=== PATIENT | male | born 2000 | race Caucasian/White ===

== ENCOUNTER 2023-12-27 12:26 | Day surgery (SDC) | payer BC, SELFPAY ==
[2023-12-27] VITALS (12 sets, daily range): BP systolic 121–143; BP diastolic 75–93; PULSE 67–95; RESP 12–19; TEMP 36.4–36.8; O2SAT 95–99; BMI 22.0
[2023-12-27] MEDS: LACTATED RINGERS 1000 ML 1,000 ML 100 ML IV ×2 (15:15→15:44)
--- NOTE | 2023-12-27 15:28 | PM.GSHP ---
History of Present Illness History of Present Illness Date Seen: 12/27/23 Chief complaint: Surgery Narrative: Arturo Coleman is a 23 year old male who presented to his clinic with complaints of worsening right lower quadrant abdominal pain. He states that he 1st started to notice pain on Saturday. Initially it was more focused in his upper abdomen. It did start to improve, but then became worse later this week. This morning the pain became more intense and focused in the right lower quadrant. Denies any nausea or vomiting, has had a decrease in appetite. Has never had pain like this before. No fevers at home. He has never had abdominal surgery before and is otherwise healthy. Review of Systems Status of ROS: Reports: 10 or more systems reviewed and unremarkable except as noted in History and below [facility] Surgical History (Updated 12/27/23 @ 12:39 by Myrtle Chery RN) [place] teeth extracted ?K08.409 - Partial loss of teeth, unspecified cause, unspecified class (ICD-10) Social History Smoking Status: Never smoker How often do you have a drink containing alcohol: 2-4 times a month How many standard drinks containing alcohol do you have on a typical day: 3 or 4 How often do you have six or more drinks on one occasion: Weekly AUDIT-C Alcohol total score: 6 Non-prescribed substance use: denies use Caffeine: Yes (1-2 cups/day) Meds Home Medications and Allergies Allergies Allergy/AdvReac Type Severity Reaction Status Date / Time No Known Drug Allergies Allergy Unverified 12/27/23 12:37 Exam Narrative: Exam Narrative: General: Alert and oriented, no acute distress Respiratory: Clear breath sounds bilaterally CV: Well perfused, regular rhythm and rate Abdomen: Soft, tender to palpation right lower quadrant with no guarding or rebound. Const: Vital Signs, click to edit/add: Vital Signs - 24 hr 12/27/23 12:56 Temperature 98.3 F Pulse Rate 67 Respiratory Rate 16 Blood Pressure 135/79 Pulse Oximetry 98 Oxygen Delivery Me thod Room Air Results Results Labs: No labs performed at clinic. Abdomen CT scan report/results: report reviewed (CT scan done at [facility]. Dilated appendix with some hyperemic changes consistent with early, acute appendicitis. No evidence of perforation.) and image reviewed Progress Note:A&P Assessment and plan (1) Acute appendicitis: Status: Acute Plan The patient presented with a history, exam and imaging findings consistent with acute, early appendicitis. I discussed the treatment options with the patient including non-surgical and surgical options. I recommended laparoscopic appendectomy. The risks of surgery were reviewed with the patient including the risks of bleeding, post-operative wound or intra-abdominal infection, injury to abdominal structures and possible conversion to an open operation. We also discussed anesthetic complications including VA, stroke, respiratory failure and blood clots. The patient voiced an understanding of our conversation, had the opportunity to ask questions, agreed to accept the risks of surgery and asked that we proceed with surgery. -OR for laparoscopic appendectomy
[2023-12-27] MEDS: PIPERACILLIN/TAZOBACTAM 3.375 GM in 0.9 % SODIUM CHLORIDE Mini-bag 100 ML IVPB (15:35)
[2023-12-27] MEDS: BUPIVACAINE 0.25% 30 ML INJECTION (16:02)
--- NOTE | 2023-12-27 16:19 | PM.GSPRC ---
Operative Note Date of procedure: 12/27/23 Pre-op diagnosis: Acute appendicitis, non perforated Post-op diagnosis: same Type of Procedure: laparoscopic appendectomy Indications: Patient is a 23-year-old male who presented to clinic with complaints of right lower quadrant abdominal pain. Clinical history and CT imaging confirmed a diagnosis of acute, uncomplicated appendicitis. Risks and benefits of operative intervention were discussed at length with the patient. Risks included but was not limited to: Bleeding, infection, risk of damage to surrounding structures, possible need for additional procedures, possible need to convert to an open operation and postoperative complications such as pneumonia, pulmonary emboli or [place]. All questions and concerns were addressed with the patient agreeing to proceed. Procedure Description: After discussing the risks and benefits of the procedure, the patient signed informed consent.? The operative site was marked and the patient was brought to the operating room and placed on the operating table in supine position.? Care was taken to pad the patient's pressure points.?? The patient was then intubated by anesthesia.?? The operative site was then prepped and draped in the usual sterile fashion.? A time-out was then performed. Entrance to the abdomen was obtained via a 5 mm optical trocar in the left upper quadrant. The abdomen was insufflated and briefly surveyed for any signs of injury. There were none. A 12 mm port was placed at the umbilicus as well as a 5 mm port in the left lower quadrant under direct vision. The patient was then placed in Trendelenburg position with the right side up. The small bowel was gently moved out of the way and the appendix was in view. This was grasped and pulled into view. A mesenteric window was created between the base of the appendix and the mesoappendix. A 30 mm Endo-SOFIA purple load stapler was then used to transect the appendix at its base. A 45 mm vascular load stapler was then used to take the mesoappendix. The staple lines were inspected for bleeding. A small area of arterial bleeding was seen at the base of the appendix, this was controlled with 2 5 mm clips. Two small pinpoint areas of bleeding were also identified on the mesoappendix staple line, this was controlled with cautery. Hemostasis then appeared excellent. The appendix was then removed from the abdomen using an Endo-Catch bag. The specimen was sent to pathology. The 12 mm port site fascia was closed with 0 Vicryl. All other ports were removed under direct visualization. The skin was then closed with absorbable subcuticular suture. Sterile dressings were then applied. Instrument sponge and needle counts were correct at the end of the case. The patient was then woken and transported to the PACU in stable condition. Findings: Acute appendicitis, non perforated Anesthesia: GETA Surgeon: Tova Weiner MD Estimated blood loss (mL): 5 Specimen: Appendix Condition: stable Disposition: PACU
--- NOTE | 2023-12-27 16:32 | W.ANESCHARGE ---
Anesthesia Charges Start Date/Time Anesthesia Start Date: 12/27/23 Anesthesia Start Time: 15:20 Stop Date/Time Anesthesia Stop Date: 12/27/23 Anesthesia Stop Time: 16:29
--- NOTE | 2023-12-27 17:04 | SUR.PHASEI ---
patient met discharge criteria per anesthesia
[2023-12-27] MEDS: KETOROLAC 15 MG/ML inj IVP (17:16)
[2023-12-27] MEDS: HYDROCODONE-ACETAMIN 5-325 MG 1 TAB PO (18:03)
--- NOTE | 2023-12-27 19:33 | PC.NURSE ---
shift note: pt vss stable.pt tolerating toast and water. Pt ambulated in [place] SBA 150ft. Pt voided. Pt pain 4/10 with prn pain med intervention. Reviewed dc instructions. Copies sent with pt at [place]. Reported to Viktor ARANA.
--- NOTE | 2023-12-27 19:58 | PC.NURSE ---
Pt VSS, Pain controlled, No N/V. Ambulated to [address]. Discharged with mother at 89
== END 2023-12-27 16:19 | disposition home or self-care (01) ==
PROVIDERS: PCP Family Medicine; Visit Provider Surgery
PROC: 0DTJ4ZZ Resection of Appendix, Percutaneous Endoscopic Approach (ICD-10-PCS; CPT 44970; principal; 2023-12-27 13:45)
DX: K35.80 Unspecified acute appendicitis (principal)
CPT/HCPCS: 44970; 00840; 88304; A9270; J0330; J0665; J1100; J1885; J2250; J2405; J2543; J2704; J3010; J3490; J7120